=== PATIENT | male | born 1960 | race Caucasian/White ===

== ENCOUNTER 2019-03-27 21:50 | Observation (INO) ==
[2019-03-27] MEDS ORDERED: 0.9 % Sodium Chloride 1,000 ML IVC ONE ×2 (22:05→23:31)
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
[2019-03-27] MEDS ORDERED: 0.9 % Sodium Chloride 1,000 ML IVC SCH (22:15)
[2019-03-27 22:59] LABS: Basophils % 0.3 %; Eosinophils # 0.1 K/mcL (0.0-0.6); Eosinophils % 1.2 %; Hemoglobin 13.6 g/dL (12.9-16.9); Immature Granulocytes % 0.4 % (0-4); Lymphocytes # 1.9 K/mcL (0.6-4.6); Lymphocytes % 20.1 %; Mean Corpuscular HGB Conc 34.9 g/dL (31.6-35.5); Mean Corpuscular Hemoglobin 31.9 pg (28.0-33.3); Mean Corpuscular Volume 91.3 fL (83.0-100.0); Mean Platelet Volume 9.4 fL (9.4-12.4); Monocytes # 0.7 K/mcL (0.0-1.3); Monocytes % 7.2 %; Neutrophils # 6.8 K/mcL (1.6-8.9); Platelet Count 325 K/mcL (140-400); Red Blood Count 4.27 M/mcL (4.19-5.50); Red Cell Distribution Width 13.2 % (11.5-14.5); Segmented Neutrophils % 70.8 %; White Blood Count 9.6 K/mcL (4.3-11.1)
[2019-03-27 23:02] LABS: Prothrombin Time 11.8 Seconds (9.4-12.1)
[2019-03-27 23:05] LABS: Activated Partial Thrombo Time 32.9 Seconds (26.0-36.0)
[2019-03-27 23:15] LABS: Acetaminophen < 10 mcg/mL (10-20); Alanine Aminotransferase 33 Units/L (7-52); Albumin 3.8 g/dL (3.5-5.7); Albumin/Globulin Ratio 1.3 (1.1-2.2); Alkaline Phosphatase 79 Units/L (34-104); Aspartate Amino Transferase 77 Units/L (13-39); BUN/Creatinine Ratio 30 (6-26); Bilirubin,Direct 0.3 mg/dL (0.0-0.2); Bilirubin,Indirect 1.3 mg/dL (0.0-1.2); Bilirubin,Total 1.6 mg/dL (0.3-1.0); Blood Urea Nitrogen 23 mg/dL (6-20); Calcium 9.1 mg/dL (8.6-10.3); Carbon Dioxide 20 mEq/L (23-29); Chloride 109 mEq/L (98-107); Ethanol < 10 mg/dL (Less than 10); Globulin 2.9 g/dL (2.4-3.5); Glucose 111 mg/dL (70-105); Osmolality,Calculated 290 (280-300); Potassium 3.5 mEq/L (3.5-5.1); Salicylate < 2.5 mg/dL (15.0-30.0); Sodium 138 mEq/L (136-145); Total Protein 6.7 g/dL (6.4-8.9); eGFR For African Americans > 60 (> 60); eGFR For Non-African Americans > 60 (> 60)
[2019-03-27 23:23] LABS: Bilirubin,Urine Negative (Negative); Blood,Urine Small (Negative); Clarity,Urine Cloudy (Clear); Glucose,Urine (UA) Normal (Normal); Ketones,Urine Negative (Negative); Leukocyte Esterase,Urine Moderate (Negative); Nitrite,Urine Positive (Negative); PH,Urine 7.5 pH Units (5.0-8.0); Protein,Urine 30 mg/dL (Neg-Trace); Specific Gravity,Urine 1.015 (1.010-1.025); Urobilinogen,Urine Normal (Normal)
[2019-03-27 23:30] LABS: Color,Urine Light Yellow (Yellow)
[2019-03-27 23:33] LABS: Bacteria,Urine Many per hpf (None-Few); Squamous Epithelial Cell,Urine Few per lpf (None-Few); WBC,Urine 30-50 per hpf (0-3)
[2019-03-27 23:35] LABS: Mucus,Urine Moderate (Few)
[2019-03-27 23:36] LABS: Hyaline Casts,Urine Few per lpf (None-Few)
[2019-03-27 23:39] LABS: Amphetamine Screen,Urine Positive ng/mL (Cutoff=1000); Barbiturate Screen,Urine Negative ng/mL (Cutoff=200); Benzodiazepines Screen,Urine Positive ng/mL (Cutoff=200); Cannabinoid Screen,Urine Negative ng/mL (Cutoff = 50); Cocaine Screen,Urine Negative ng/mL (Cutoff= 300); Opiate Screen,Urine Negative ng/mL (Cutoff=300); Phencyclidine Screen,Urine Negative ng/mL (Cutoff=25)
[2019-03-28] MEDS ORDERED: cefTRIAXone 2,000 MG in 0.9 % Sodium Chloride Mini Bag 100 ML IVPB ONE (00:07)
[2019-03-28] MEDS ORDERED: Naloxone 0.4 MG/ML INJ IVP PRN (03:43)
[2019-03-28] MEDS ORDERED: Ondansetron ODT 4 MG TAB.RAPDIS SL PRN (03:43)
[2019-03-28] MEDS ORDERED: Mag Hydrox/Al Hydrox/Simeth 30 ML UDC PO PRN (03:43)
[2019-03-28] MEDS ORDERED: MOM Conc 10 ML UD.LIQ PO PRN (03:43)
[2019-03-28] MEDS: 0.9 % Sodium Chloride 1,000 ML IVC SCH ×2 (09:26→19:46)
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
[2019-03-28] MEDS ORDERED: *HR* LORazepam 2 MG/ML VIAL IVP PRN (12:30)
[2019-03-28] MEDS: 0.45 % Sodium Chloride w/KCl 20 MEQ/1,000 ML MLS IVC SCH ×2 (14:13→22:46)
[2019-03-28] MEDS ORDERED: cefTRIAXone 2,000 MG in Water for inj. (sterile) 20 ML IVPB SCH (15:00)
[2019-03-28 15:42] LABS: BUN/Creatinine Ratio 25 (6-26); Blood Urea Nitrogen 16 mg/dL (6-20); Calcium 8.2 mg/dL (8.6-10.3); Carbon Dioxide 19 mEq/L (23-29); Chloride 113 mEq/L (98-107); Creatine Kinase 1068 Units/L (30-223); Glucose 104 mg/dL (70-105); Osmolality,Calculated 291 (280-300); Potassium 3.3 mEq/L (3.5-5.1); Sodium 140 mEq/L (136-145); eGFR For African Americans > 60 (> 60); eGFR For Non-African Americans > 60 (> 60)
[2019-03-29] MEDS: 0.45 % Sodium Chloride w/KCl 20 MEQ/1,000 ML MLS IVC SCH ×2 (06:26→14:26)
[2019-03-29 06:55] LABS: Basophils # 0.1 K/mcL (0.0-0.2); Basophils % 0.6 %; Eosinophils # 0.3 K/mcL (0.0-0.6); Eosinophils % 3.8 %; Hematocrit 37.5 % (37.5-50.1); Immature Granulocytes % 0.3 % (0-4); Lymphocytes # 1.9 K/mcL (0.6-4.6); Lymphocytes % 23.3 %; Mean Corpuscular HGB Conc 34.7 g/dL (31.6-35.5); Mean Corpuscular Hemoglobin 31.9 pg (28.0-33.3); Mean Corpuscular Volume 91.9 fL (83.0-100.0); Mean Platelet Volume 9.2 fL (9.4-12.4); Monocytes # 0.6 K/mcL (0.0-1.3); Monocytes % 7.5 %; Neutrophils # 5.1 K/mcL (1.6-8.9); Platelet Count 279 K/mcL (140-400); Red Blood Count 4.08 M/mcL (4.19-5.50); Red Cell Distribution Width 13.2 % (11.5-14.5); Segmented Neutrophils % 64.5 %
[2019-03-29 07:16] LABS: Alanine Aminotransferase 23 Units/L (7-52); Albumin 3.4 g/dL (3.5-5.7); Albumin/Globulin Ratio 1.3 (1.1-2.2); Alkaline Phosphatase 68 Units/L (34-104); Aspartate Amino Transferase 34 Units/L (13-39); BUN/Creatinine Ratio 16 (6-26); Blood Urea Nitrogen 11 mg/dL (6-20); Calcium 8.4 mg/dL (8.6-10.3); Carbon Dioxide 24 mEq/L (23-29); Chloride 107 mEq/L (98-107); Globulin 2.6 g/dL (2.4-3.5); Glucose 101 mg/dL (70-105); Magnesium 1.5 mg/dL (1.6-2.6); Osmolality,Calculated 286 (280-300); Potassium 3.4 mEq/L (3.5-5.1); Sodium 138 mEq/L (136-145); eGFR For African Americans > 60 (> 60); eGFR For Non-African Americans > 60 (> 60)
--- NOTE | 2019-03-29 12:01 | Electrocardiograph Report ---
[address] [address] Test Date: 2019-03-28 Pat Name: Luis Perdue Department: [id number] Room: [facility] Gender: M Automation Tester: [id number] : 1960 Requested By: Yoan Bravo Order Number: [id number] Reading MD: Yaw Miller Measurements Intervals [place] Rate: 84 P: 61 CO: 133 QRS: 16 QRSD: 82 T: 53 QT: 362 QTc: 403 Interpretive Statements SINUS RHYTHM Electronically Signed On 03-29-2019 11:59:48 EDT by Yaw Miller
--- NOTE | 2019-03-29 12:13 | Internal Med Progress Note ---
Date of Encounter: 03/29/19 Time of Encounter: 12:00 - Assessment and plan (1) Rhabdomyolysis Current Visit: Yes Status: Acute Assessment and plan: March 29. Resolving. Repeat CK yesterday significantly lower at 1068. Continue IV fluids. Qualifiers: Rhabdomyolysis type: non-traumatic Qualified Code(s): M62.82 - Rhabdomyolysis (2) Hyperammonemia Current Visit: Yes Status: Acute Assessment and plan: March 29. Improving. Ammonia level is decreased to 55. (3) Substance abuse Current Visit: Yes Status: Acute Assessment and plan: March 29. He does not recall the events leading to emergency room visit/hospitalization. I informed him he had positive urine drug test. (4) UTI (urinary tract infection) Current Visit: Yes Status: Acute Assessment and plan: March 29. Urine culture results pending. Continue empiric Rocephin. Qualifiers: Urinary tract infection type: site unspecified Hematuria presence: without hematuria Qualified Code(s): N39.0 - Urinary tract infection, site not specified (5) History of bladder cancer Current Visit: Yes Status: Acute Assessment and plan: March 29. Status post bladder resection with urostomy development. - Subjective Interval history: March 29. No new problems have arisen. He is more awake and has no complaints except feeling thirsty. - Constitutional Vitals: Temp Pulse Resp BP Pulse Ox 98.1 F 62 20 138/84 97 03/29/19 06:48 03/29/19 06:48 03/29/19 06:48 03/29/19 06:48 03/29/19 06:48 Exam: He is resting comfortably in bed and appears in no acute distress. His response to questions is slow. He is alert and knows the day, date, his age, and location. He does not recall events that led to coming to the hospital. I reviewed his medications and lab results. Internal Medicine: Result - Labs CBC & Chem 7: 03/29/19 06:31 03/29/19 06:31 Labs: Short CBC 03/29/19 Range/Units 06:31 WBC 8.0 (4.3-11.1) K/mcL Hgb 13.0 (12.9-16.9) g/dL Hct 37.5 (37.5-50.1) % Plt Count 279 (140-400) K/mcL Neutrophils # 5.1 (1.6-8.9) K/mcL BMP 03/28/19 03/29/19 14:52 06:31 Sodium 140 138 Potassium 3.3 L 3.4 L Chloride 113 H 107 Carbon Dioxide 19 L 24 BUN 16 11 Creatinine 0.65 L 0.67 L Glucose 104 101 Calcium 8.2 L 8.4 L Liver Function 03/29/19 Range/Units 06:31 Total Bilirubin 1.0 (0.3-1.0) mg/dL AST 34 (13-39) Units/L ALT 23 (7-52) Units/L Alkaline Phosphatase 68 (34-104) Units/L Albumin 3.4 L (3.5-5.7) g/dL - ABG Interpretation ABG results: PT/INR, D-dimer PT 11.8 Seconds (9.4-12.1) 03/27/19 22:38 Consult Discharge Plan - Plan Referrals: NONE,PCP [Primary Care Provider] - 1 week
[2019-03-29] MEDS: Magnesium Oxide 400 MG TABLET PO SCH (14:26)
[2019-03-29] MEDS: cefTRIAXone 2,000 MG in Water for inj. (sterile) 20 ML IVPB SCH (15:43)
[2019-03-30] MEDS: 0.45 % Sodium Chloride w/KCl 20 MEQ/1,000 ML MLS IVC SCH (02:55)
[2019-03-30 06:18] LABS: Basophils # 0.1 K/mcL (0.0-0.2); Basophils % 0.6 %; Eosinophils # 0.4 K/mcL (0.0-0.6); Hematocrit 36.3 % (37.5-50.1); Immature Granulocytes % 0.4 % (0-4); Lymphocytes # 2.4 K/mcL (0.6-4.6); Lymphocytes % 25.9 %; Mean Corpuscular HGB Conc 35.8 g/dL (31.6-35.5); Mean Corpuscular Hemoglobin 32.8 pg (28.0-33.3); Mean Corpuscular Volume 91.7 fL (83.0-100.0); Mean Platelet Volume 9.4 fL (9.4-12.4); Monocytes # 0.9 K/mcL (0.0-1.3); Monocytes % 9.4 %; Neutrophils # 5.4 K/mcL (1.6-8.9); Platelet Count 297 K/mcL (140-400); Red Blood Count 3.96 M/mcL (4.19-5.50); Red Cell Distribution Width 13.2 % (11.5-14.5); Segmented Neutrophils % 59.7 %; White Blood Count 9.1 K/mcL (4.3-11.1)
[2019-03-30 06:36] LABS: BUN/Creatinine Ratio 12 (6-26); Blood Urea Nitrogen 9 mg/dL (6-20); Carbon Dioxide 23 mEq/L (23-29); Chloride 106 mEq/L (98-107); Glucose 102 mg/dL (70-105); Osmolality,Calculated 279 (280-300); Potassium 3.3 mEq/L (3.5-5.1); Sodium 135 mEq/L (136-145); eGFR For African Americans > 60 (> 60); eGFR For Non-African Americans > 60 (> 60)
[2019-03-30] MEDS: Magnesium Oxide 400 MG TABLET PO SCH (09:34)
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
[2019-03-30 18:21] VITALS: BP 144/83
[2019-03-30] MEDS: cefTRIAXone 2,000 MG in Water for inj. (sterile) 20 ML IVPB SCH (19:34)
== END 2019-03-30 21:01 | disposition home or self-care (01) ==
LOC: INPPIK 21:50 → EMEROOPIK 21:50 → INPPIK 03-28 03:00
PROVIDERS: ADMIT Internal Medicine; ATTEND Internal Medicine